=== PATIENT | male | born 1995 | race Caucasian/White ===

== ENCOUNTER 2017-08-08 23:16 | Emergency (ER) | payer SELFPAY ==
[~2017-08-08] VITALS: Ht 182.9 cm; Wt 72.0 kg
[2017-08-09] MEDS ORDERED: SODIUM CHLORIDE 0.9% 1,000 ML IV ONE (00:07)
[2017-08-09 00:27] LABS: BASOPHILS % 0.4 % (0.0-2.0); HEMATOCRIT. 44.6 % (42.0-52.0); HEMOGLOBIN. 15.6 g/dL (14.0-18.0); LYMPHOCYTES % 27.4 % (20.0-50.0); MEAN CORPUSCULAR HEMOGLOBIN 31.9 pg (28.0-32.0); MEAN PLATELET VOLUME 7.7 fl (7.4-10.4); MONOCYTES % 6.3 % (2.0-8.0); NEUTROPHILS % 64.9 % (40.0-76.0); PLATELET 224 x1000/uL (130-400); RED CELL DISTRIBUTION WIDTH 13.1 % (11.6-14.6)
[2017-08-09 00:33] LABS: CHLORIDE 105 mEq/L (98-107)
[2017-08-09 00:38] LABS: ETHANOL BLOOD 140 mg/dL
[2017-08-09 01:21] VITALS: BP 122/79
== END 2017-08-09 01:23 | disposition home or self-care (01) ==
LOC: ER 23:16
DX: F91.9 Conduct disorder, unspecified (principal); R45.1 Restlessness and agitation
CPT/HCPCS: 36415; 80053; 80307; 80329; 85025; 93005; 99285; G0482; J7030; Z7610